=== PATIENT | male | born 1995 | race Caucasian/White ===

== ENCOUNTER 2018-04-19 16:40 | Emergency (ER) | payer BC ==
[2018-04-19] MEDS ORDERED: Sodium Chloride 0.9% 10 ML Syringe FLUSH PRN (16:56)
[2018-04-19] MEDS ORDERED: Morphine 4 MG/ML Syringe IVPUSH PRN (16:56)
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
[2018-04-19] MEDS ORDERED: Lidocaine/EPINEPHrine/Tetracaine Soln 1 ML TOP ONE (17:51)
[2018-04-19] MEDS ORDERED: Bacitracin Oint 1 GM U/D Packet TOP ONE (17:52)
--- NOTE | 2018-04-20 08:34 | CR ---
Chest: Frontal view of the chest was obtained. Comparison: No prior chest x-ray. Heart size and mediastinum are normal. Lungs are clear. Bony structures are unremarkable. Impression: 1. Nothing acute is seen on PA chest x-ray. Diagnostic code #1
--- NOTE | 2018-04-20 08:34 | CR ---
Left wrist: Four views of the left wrist were obtained. Comparison: No prior wrist exam. Joint spaces are preserved. No fracture, dislocation or other bony abnormality is seen. Impression: 1. No abnormality is seen on left wrist exam. Diagnostic code #1
--- NOTE | 2018-04-20 08:34 | CR ---
Left elbow: Four views of the left elbow were obtained. Comparison: No previous study. Joint spaces are maintained. Soft tissue swelling is seen medially. No joint effusion is seen. No acute fracture or other bony abnormality is seen. Impression: 1. Medial soft tissue swelling. 2. No bony abnormality is identified on left elbow study. Diagnostic code #2
--- NOTE | 2018-04-20 08:34 | CR ---
Left shoulder: Three views of the left shoulder were obtained. Comparison: No prior shoulder study. Glenohumeral joint and acromioclavicular joint appears within normal limits. No acute fracture or other bony abnormality is seen. Impression: 1. No abnormality is identified on left shoulder study. Diagnostic code #1
== END 2018-04-19 18:45 | disposition home or self-care (01) ==
LOC: JD.ED 16:40
DX: S47.2XXA Crushing injury of left shoulder and upper arm, initial encounter (principal); S00.01XA Abrasion of scalp, initial encounter; S30.811A Abrasion of abdominal wall, initial encounter; S50.319A Abrasion of unspecified elbow, initial encounter; V09.20XA Pedestrian injured in traffic accident involving unspecified motor vehicles, initial encounter
CPT/HCPCS: 36415; 71045; 73030; 73080; 73110; 80053; 85025; 85610; 86850; 86900; 86901; 96374; 99284; A9270; J2270; J7050